=== PATIENT | male | born 1980 | race Caucasian/White ===

== ENCOUNTER 2024-12-15 08:52 | Outpatient (AMB) | payer OTHER, SELFPAY ==
--- NOTE | 2024-12-15 08:49 | MHC.PC.OV ---
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 Accompanied by: Self / Same As Patient Allergies No Known Allergies Allergy (Verified 12/15/24 09:11) Medication List - Last Reconciled 12/15/24 by Rashida Mendez PA-C No Known Home Meds Tobacco use date assessed: 12/15/24 Dental Screening Dental Screen Date: 12/15/24 Did you have a dental visit in the last 12 months?: Yes Did you have a dental problem in the last 6 months where you did not have access to dental care?: No Was dental information given to patient?: Patient has dentist HPI Physical HPI Details The patient is a 44-year-old male presenting for a physical examination and establishment of care with a new primary care provider. The patient reports a history of Dupuytren's contracture, which has been evaluated by a specialist. The specialist indicated that surgical intervention might be necessary if the condition progresses to significantly impair function. The patient notes that the condition has worsened since his custodial from service, but he is not currently seeking surgical intervention. He is open to physical therapy to manage the condition and prevent further progression. The patient also reports a persistent issue with seborrheic dermatitis, characterized by dandruff. He has previously used ketoconazole 2% shampoo, prescribed by dermatology, but found it ineffective. He is willing to retry the treatment now that he is no longer in active service and can adhere to a more consistent treatment regimen. Regarding preventative care, the patient has a family history of colon cancer, with his maternal grandfather diagnosed at an advanced age. He is considering a colonoscopy at age 45, as recommended, due to this family history. Social History - Employment: Retired from service, currently job hunting. - Family status: Has children who are active in sports. FORMERLY [facility], 1928–1983 Medical History Encounter for preventive care Dupuytren contracture of right hand Annual physical exam Establishing care with new doctor, encounter for Seborrheic dermatitis of scalp Family History Father No problems noted. Mother No problems noted. Social History Housing: House Alcohol intake: current Alcohol intake frequency: 3 or more drinks per day Patient Tobacco Use Status: Never used Tobacco service: Yes Current occupational status: retired Cognitive needs: No Hearing needs: No Vision needs: No Questionnaire PHQ-9 Over the last 2 weeks, how often have you been bothered by any of the following problems? 1. Little interest or pleasure in doing things: not at all 2. Feeling down, depressed, or hopeless: not at all 3. Trouble falling or staying asleep, or sleeping too much: not at all 4. Feeling tired or having little energy: not at all 5. Poor appetite or overeating: not at all 6. Feeling bad about yourself - or that you are a failure or have let yourself or your family down: not at all 7. Trouble concentrating on things, such as reading the newspaper or watching television: not at all 8. Moving or speaking so slowly that other people could have noticed. Or the opposite - being so fidgety or restless that you have been moving around a lot more than usual: not at all 9. Thoughts that you would be better off or of hurting yourself in some way: not at all Total score: 0 Depression Screening Interpretation: Negative Depression Screening Done: Yes 97526 - PHQ-9 Billing: Yes Source: Developed by Drs. Miki Grayson, Elsa Ruff, Simone Youssef and colleagues, with an educational jessica from [employer]. Thrive Questionnaire Date Thrive assessed: 12/15/24 I am a: Patient What is your living situation today?: I have a steady place to live Within the past 12 months, did the food you bought not last and you didn't have the money to get more?: Never true Within the past 12 months, did you worry whether your food would run out before you got money to buy more?: Never true Do you have trouble paying for medicines?: No Do you have trouble getting transportation to medical appointments?: No Do you have trouble paying your heating and electricity bill?: No Do you have trouble taking care of your child, family member or friend?: No Do you have trouble with day-to-day activities such as bathing, preparing meals, shopping, managing finances, etc.?: No Are you currently unemployed and looking for a job?: No Are you interested in more education?: No Please select the resources that you would like help with: None THRIVE Score: 0 AUDIT C Alcohol Use Questionnaire (AUDIT-C) 1. How often do you have a drink containing alcohol?: 4 or more times a week 2. How many drinks containing alcohol do you have on a typical day when you are drinking?: 3 or 4 3. How often do you have six or more drinks on one occasion?: Never Total Score: 5 Score Reviewed/Action Taken: No WOJCIECH-7 AMB Questionnaire WOJCIECH-7 Date WOJCIECH - 7 assessed: 12/15/24 Feeling nervous, anxious, or on edge: 0 = Not at all Not being able to stop or control worryin = Not at all Worrying too much about different things: 0 = Not at all Trouble relaxin = Not at all Being so restless that it is hard to sit still: 0 = Not at all Becoming easily annoyed or irritable: 0 = Not at all Feeling afraid as if something awful might happen: 0 = Not at all Total WOJCIECH-7 score (0-4 normal; 5-9 mild; 10-14 moderate; 15-21 severe): 0 Source: Developed by Drs. Miki Grayson, Elsa Ruff, Simone Youssef and colleagues, with an educational jessica from [employer]. WOJCIECH-7 Assessment Billing WOJCIECH-7 Assessment Tool: WOJCIECH-7 Assessment 70092 Review of Systems Const Details: - Dermatological: Reports persistent dandruff. - Musculoskeletal: Reports Dupuytren's contracture, denies significant functional impairment currently. - Gastrointestinal: Denies black or bloody stools. Physical exam (Primary Care) Vital Signs: Last Vital Signs Temp 98.6 F 12/15/24 08:58 Pulse 74 12/15/24 08:58 Resp 16 12/15/24 08:58 BP 114/75 12/15/24 08:58 Pulse Ox 98 12/15/24 08:58 Oxygen Delivery Method Room Air 12/15/24 08:58 Care Plan Goal for BP management: <140/90 at Goal BMI result Body Mass Index 24.1 Normal BMI Tobacco/Smoking Status: Tobacco use Status Tobacco use date assessed 12/15/24 12/15/24 08:50 Patient Tobacco Use Status Never used Tobacco 12/15/24 09:02 PHQ-9: PHQ-9 Score PHQ-9: Total score 0 12/15/24 09:02 Depression Screening Interpretation: Negative Thrive Assessment: Date of Thrive Assessment Date Thrive assessed 12/15/24 12/15/24 08:50 Const Other: Appearance: Alert. Oriented X3. No acute distress. Head: Normal external exam. Normocephalic. Atraumatic. Eyes: Pupils are equal, round, and reactive to light. Extraocular movements intact. Conjunctiva and sclera normal. Eyelids normal. Ears: External auditory canal normal. Tympanic membranes normal. Throat: Pharynx normal. Uvula midline. Moist mucous membranes. Neck: Normal inspection. Neck supple. Full range of motion. Cardiovascular: Normal heart rate and rhythm. Heart sound normal. No murmurs noted. Pulses normal throughout. Respiratory: No respiratory distress. Painless inspiration. Breath sounds normal. No wheezes/rales/rhonchi noted. Chest nontender. No accessory muscle usage noted or decreased air movement noted. Abdomen: Soft and nontender. Back: Full range of motion noted. Skin: Skin warm and dry. Normal skin color. Normal skin turgor. No rashes/lesions/lacerations noted. Noted dandruff issue. Extremities: No lower extremity edema. No calf tenderness is noted. Dupuytren's contracture noted on the right hand affecting for 4th ring finger with extension. Otherwise all other extremities exhibit normal range of motion. Neuro: Oriented X 3. Moving all extremities. Coding Level of Care Code New Pt Level 4 (02950) New Pt Prev Care 40-64y(82304) Diagnoses Establishing care with new doctor, encounter for Z76.89 Annual physical exam Z00.00 Seborrheic dermatitis of scalp L21.9 Dupuytren contracture of right hand M72.0 Encounter for preventive care Z00.00 Additional Codes PHQ-9 - 61139 - PHQ-9 Billing: Yes ([id number]) WOJCIECH-7 Assessment Billing - WOJCIECH-7 Assessment Tool: WOJCIECH-7 Assessment 35433 ([id number]) Assessment & Plan Assessment & Plan (1) Establishing care with new doctor, encounter for: Code(s): Z76.89 - Persons encountering health services in other specified circumstances Category: Medical (2) Annual physical exam: Code(s): Z00.00 - Encounter for general adult medical examination without abnormal findings Category: Medical (3) Seborrheic dermatitis of scalp: Code(s): L21.9 - Seborrheic dermatitis, unspecified Category: Medical Plan: The patient reports persistent seborrheic dermatitis and has previously used ketoconazole 2% shampoo without success. He is willing to retry the treatment now that he can adhere to a more consistent regimen. If ineffective, a dermatology referral may be considered. (4) Dupuytren contracture of right hand: Code(s): M72.0 - Palmar fascial fibromatosis [Dupuytren] Category: Medical Plan: The patient has Dupuytren's contracture, which has been evaluated by a specialist. Surgical intervention may be considered if the condition progresses to significantly impair function. Currently, the patient is not seeking surgery but is open to physical therapy to manage the condition and prevent further progression. (5) Encounter for preventive care: Code(s): Z00.00 - Encounter for general adult medical examination without abnormal findings Category: Medical Plan: Will order CBC, CMP, liver enzymes, TSH, PSA, vitamin-D, vitamin B12/folate, A1c level and inflammatory marker to get baseline labs with patient and for preventative care and assessment of anemia, kidney function, liver enzymes, thyroid function, prostate cancer, diabetes and vitamin deficiencies. Patient to go fasting for blood work. Plan Plan Patient was informed and verbally consented to the use of an ambient scribe for clinic note documentation during this visit. 1. Dupuytren's Contracture The patient has Dupuytren's contracture, which has been evaluated by a specialist. Surgical intervention may be considered if the condition progresses to significantly impair function. Currently, the patient is not seeking surgery but is open to physical therapy to manage the condition and prevent further progression. 2. Seborrheic Dermatitis The patient reports persistent seborrheic dermatitis and has previously used ketoconazole 2% shampoo without success. He is willing to retry the treatment now that he can adhere to a more consistent regimen. If ineffective, a dermatology referral may be considered. 3. Preventative Care: Colon Cancer Screening The patient has a family history of colon cancer, with his maternal grandfather diagnosed at an advanced age. A colonoscopy is recommended at age 45 due to this family history. The patient is considering this recommendation and may proceed with the screening next year. During the visit, we discussed the management of Dupuytren's contracture, including the potential for surgical intervention if the condition worsens. I recommended physical therapy as a non-surgical option to manage symptoms and prevent progression. For seborrheic dermatitis, I suggested retrying ketoconazole 2% shampoo, considering the patient's current ability to adhere to treatment. We also discussed the importance of colon cancer screening due to the patient's family history, recommending a colonoscopy at age 45. Follow-up care will be based on the outcomes of these interventions and screenings. Orders: Orders Complete Blood Count Auto Diff Today Z00.00 - Encounter for general adult medical examination without abnormal findings Hemoglobin A1c Today Z00.00 - Encounter for general adult medical examination without abnormal findings PSA,Total (Free>4and<10) Today Z00.00 - Encounter for general adult medical examination without abnormal findings TSH reflex Free T4 Today Z00.00 - Encounter for general adult medical examination without abnormal findings Vitamin B12 and Folate Today Z00.00 - Encounter for general adult medical examination without abnormal findings Lipid Panel Today Z00.00 - Encounter for general adult medical examination without abnormal findings Liver Panel Today Z00.00 - Encounter for general adult medical examination without abnormal findings Magnesium Today Z00.00 - Encounter for general adult medical examination without abnormal findings C Reactive Protein Today Z00.00 - Encounter for general adult medical examination without abnormal findings Comprehensive [place]. Panel Fast Today Z00.00 - Encounter for general adult medical examination without abnormal findings Vitamin D 25-OH Total Today Z00.00 - Encounter for general adult medical examination without abnormal findings Medications: New ketoconazole-hydrocortisone 2-2.5 % 1 appl topical BID 30 grams 6RF L21.9 - Seborrheic dermatitis, unspecified, Z00.00 - Encounter for general adult medical examination without abnormal findings, Z76.89 - Persons encountering health services in other specified circumstances Patient Instructions: - Consider physical therapy for Dupuytren's contracture to prevent progression. - Retry ketoconazole 2% shampoo for seborrheic dermatitis as directed. - Plan for a colonoscopy at age 45 due to family history of colon cancer. - Follow up with primary care provider if symptoms worsen or new symptoms develop.
[2024-12-15 08:58] VITALS: BP 114/75; PULSE 74; RESP 16; TEMP 37; O2SAT 98; BMI 24.1
== END 2024-12-15 09:22 | disposition home or self-care (01) ==
LOC: HO.HMCSH 08:52
PROVIDERS: PCP Internal Medicine; Visit Provider Physician Assistant Medical
DX: Z00.00 Encounter for general adult medical examination without abnormal findings (principal); M72.0 Palmar fascial fibromatosis [Dupuytren]; L21.9 Seborrheic dermatitis, unspecified; Z76.89 Persons encountering health services in other specified circumstances

== ENCOUNTER 2024-12-16 09:10 | Outpatient (REF) | payer OTHER, SELFPAY ==
[2024-12-16 10:27] LABS: MANUAL DIFF FLAG NO
[2024-12-16 10:35] LABS: Hematocrit 44.3 % (42.0-52.0); Hemoglobin 15.5 g/dl (14.0-18.0); Imm Gran Abs Auto 0.01 X10*3/uL (0.00-0.03); Imm Gran Pct Auto 0.3 % (0.0-0.4); Lymphocytes Absolute Auto 1.2 X10*3/uL (1.2-4.9); Mean Corpuscular HGB Conc 35.0 g/dl (31.0-36.0); Mean Corpuscular Hemoglobin 31.8 pg (27.0-33.0); Mean Corpuscular Volume 91.0 fL (80.0-98.0); NRBC Abs Auto 0.000 X10*3/uL (0.0-0.012); NRBC Pct Auto 0.0 /100WBC (0.0-0.2); Platelet Count 215 X10*3/uL (160-400); Red Blood Count 4.87 X10*6/uL (4.60-5.80); White Blood Count 3.6 X10*3/uL (4.8-10.8)
[2024-12-16 10:38] LABS: Hemoglobin A1C 140.7704 umol/L; Total Hemoglobin (HGBA1C) 4093.7936 umol/L
[2024-12-16 11:28] LABS: Alanine Aminotransferase 21 U/L (0-40); Albumin Level 4.7 g/dL (3.5-5.0); Alkaline Phosphatase 80 U/L (39-117); Anion Gap 14 (12-20); Aspartate Amino Transferase 19 U/L (5-37); Blood Urea Nitrogen 13 mg/dL (9-16); Calcium 9.5 mg/dL (8.4-10.2); Carbon Dioxide 27 mmol/L (22-29); Chloride 104 mmol/L (96-108); Cholesterol 246 mg/dL (<200); Estimated Glomerular Filt Rate > 60; HDL Cholesterol 80 mg/dL (>40); Magnesium 2.2 mg/dL (1.6-2.6); PSA,Total (Free>4and<10) 0.83 ng/mL (0.00-4.00); Potassium 4.4 mmol/L (3.3-5.1); Sodium 141 mmol/L (135-145); Total Protein 7.3 g/dL (6.5-8.0); Triglycerides 73 mg/dL (<150)
[2024-12-16 11:41] LABS: Folate 12.0 ng/mL (> or = 4.0); Vitamin B12 341 pg/mL (200-900)
== END 2024-12-16 09:11 | disposition home or self-care (01) ==
LOC: HO.HMGCLDS 09:10
PROVIDERS: PCP Internal Medicine; Visit Provider Physician Assistant Medical
DX: Z00.00 Encounter for general adult medical examination without abnormal findings (principal); Z76.89 Persons encountering health services in other specified circumstances; L21.9 Seborrheic dermatitis, unspecified; M72.0 Palmar fascial fibromatosis [Dupuytren]; Z12.5 Encounter for screening for malignant neoplasm of prostate; Z13.1 Encounter for screening for diabetes mellitus; Z13.30 Encounter for screening examination for mental health and behavioral disorders, unspecified; Z13.31 Encounter for screening for depression
CPT/HCPCS: 36415; 80053; 80061; 80076; 82248; 82306; 82607; 82746; 83036; 83735; 84153; 84443; 85025; 86140; 96127; 99202